=== PATIENT | female | born 1965 ===

== ENCOUNTER 2017-11-24 17:04 | Outpatient (CLI) | payer OTHER ==
--- NOTE | 2017-11-24 18:44 | RAD ---
RIGHT FOOT THREE VIEWS: History: Pain in right foot. N79.671 FINDINGS: No acute fracture. No malalignment. Soft tissues are unremarkable. Lisfranc interval appears to be ma intained. IMPRESSION: No acute abnormalities. POS: [id number]
== END 2017-11-24 17:05 | disposition home or self-care (01) ==
LOC: SCSRAD 17:04
PROVIDERS: ATTEND Family Medicine
DX: M79.671 Pain in right foot (principal)